=== PATIENT | female | born 1970 | race Caucasian/White ===

== ENCOUNTER 2020-04-21 10:25 | Outpatient (CLI) | payer BC | END 2020-04-21 10:26 | disposition home or self-care (01) | LOC: BICMAMMO 10:25 | PROVIDERS: ATTEND Family Medicine | DX: Z12.31 Encounter for screening mammogram for malignant neoplasm of breast (principal) | CPT/HCPCS: 77063; 77067 ==

== ENCOUNTER 2020-08-23 07:47 | Outpatient (CLI) | payer BC | END 2020-08-23 07:48 | disposition home or self-care (01) | LOC: BICULT 07:47 | PROVIDERS: ATTEND Family Medicine | DX: R74.8 Abnormal levels of other serum enzymes (principal); K76.89 Other specified diseases of liver | CPT/HCPCS: 76705 ==

== ENCOUNTER 2022-05-23 08:56 | Outpatient (CLI) | payer BC | END 2022-05-23 08:57 | disposition home or self-care (01) | LOC: BICMAMMO 08:56 | PROVIDERS: ATTEND Psychiatry & Neurology Neurology | DX: Z12.31 Encounter for screening mammogram for malignant neoplasm of breast (principal) | CPT/HCPCS: 77063; 77067 ==

== ENCOUNTER 2024-11-24 13:13 | Inpatient (IN) | payer BC ==
[2024-11-25] MEDS: Ondansetron PF 4 MG/2 ML Vial IVP PRN (07:09)
[2024-11-25] MEDS: HYDROcodone/Acetaminophen 10/325 mg Tablet PO PRN (07:09)
[2024-11-25 09:17] VITALS: BMI 33.7
[2024-11-25] MEDS ORDERED: PROPOFOL 20 ML ONE (14:51)
[2024-11-25] MEDS ORDERED: CEFAZOLIN 2 GM VIAL ONE (14:56)
[2024-11-25] MEDS ORDERED: fentaNYL PF 100 MCG/2 ML SYRINGE ONE (15:07)
[2024-11-25] MEDS ORDERED: Rocuronium Bromide 10 MG/ML (10ML VIAL) ONE (15:08)
[2024-11-25] MEDS ORDERED: [UNRECOGNIZED DRUG - OTHER] IV SCH (15:15)
[2024-11-25] MEDS ORDERED: Ondansetron PF 4 MG/2 ML Vial ONE (15:39)
[2024-11-25] MEDS ORDERED: SUGAMMADEX SODIUM 200 MG/2 ML VIAL ONE (17:29)
[2024-11-25] MEDS: Baclofen 10 MG TAB PO SCH (20:41)
[2024-11-25] MEDS: Magnesium Oxide 400 MG TAB PO SCH (20:42)
[2024-11-25] MEDS: Oxybutynin 5 MG TAB PO SCH (20:42)
[2024-11-26] MEDS: Rosuvastatin 10 MG TAB PO SCH (08:28)
[2024-11-26] MEDS: Cyanocobalamin (Vitamin B-12) 1,000 MCG TAB PO SCH (08:28)
[2024-11-26] MEDS: Ferrous Gluconate 324 MG TAB PO SCH (08:28)
[2024-11-26] MEDS ORDERED: LEVOMEFOLATE CALCIUM 15 MG PO SCH (09:00)
[2024-11-26] MEDS ORDERED: Acetaminophen 325 MG TAB PO PRN (18:26)
[2024-11-26] MEDS: Ibuprofen 200 MG TAB PO PRN (18:50)
[2024-11-26 19:21] LABS: #Basophils 0.03 10x3/uL (0.0-0.2); #Eosinophils 0.04 10x3/uL (0.0-0.7); #Monocytes 1.10 10x3/uL (0.11-0.59); #Neutrophils 5.79 10x3/uL (1.40-6.50); %Basophils 0.3 % (0.0-1.0); %Eosinophils 0.5 % (0.0-10.0); %Lymphocytes 18.7 % (21.0-51.0); %Monocytes 12.8 % (0.0-10.0); %Neutrophils 67.5 % (42.0-75.0); Hematocrit 30.4 % (36.0-47.0); Hemoglobin 10.2 g/dL (12.0-16.0); Mean Corpuscular Hemoglobin 30.8 pg (27.0-31.0); Mean Corpuscular Volume 91.8 fL (78.0-98.0); Platelet Count 218 10x3/uL (130-400); Red Blood Cell (RBC) Count 3.31 mill/uL (4.20-5.40); White Blood Cell (WBC) Count 8.59 10x3/uL (4.8-10.8)
[2024-11-26 19:34] LABS: Anion Gap 10 mmol/L (10-20); BUN (Urea Nitrogen) 21 mg/dL (9.8-20.1); Calc. Creatinine Clearance 150 mL/min (70-130); Calcium 8.3 mg/dL (7.8-10.44); Carbon Dioxide 23 mmol/L (22-29); Chloride 106 mmol/L (98-107); Glucose 121 mg/dL (70-105); Potassium 3.6 mmol/L (3.5-5.1); Sodium 135 mmol/L (136-145)
[2024-11-26] MEDS: Gabapentin 300 MG CAP PO SCH (20:16)
[2024-11-26] MEDS: Ketorolac Tromethamine 30 MG (1 mL) VIAL IVP SCH (23:11)
[2024-11-27 12:20] VITALS: BP 91/56; TEMP 97.9
[2024-12-02] MEDS ORDERED: CHOLECALCIFEROL 5000 UNIT PO SCH (09:00)
== END 2024-11-27 12:58 | disposition home or self-care (01) | DRG 494 ==
LOC: SURG A 13:13
PROVIDERS: ADMIT Orthopaedic Surgery; ATTEND Orthopaedic Surgery
PROC: 0PSD06Z Reposition Left Humeral Head with Intramedullary Internal Fixation Device, Open Approach (ICD-10-PCS; principal; 2024-11-24)
PROC: 3E03329 Introduction of Other Anti-infective into Peripheral Vein, Percutaneous Approach (ICD-10-PCS; 2024-11-24)
DX: S42.202A Unspecified fracture of upper end of left humerus, initial encounter for closed fracture (principal); W19.XXXA Unspecified fall, initial encounter; F41.9 Anxiety disorder, unspecified; F32.A Depression, unspecified; Z98.890 Other specified postprocedural states; Z90.710 Acquired absence of both cervix and uterus
CPT/HCPCS: 36415; 80048; 85025; C1713; J1100; J1885; J2250; J2270; J2704; J3010